=== PATIENT | female | born 1960 | race Caucasian/White ===

== ENCOUNTER → 2017-04-12 | Outpatient (CLI) | payer MEDICARE | LOC: COL.RAD 09:28 | DX: K50.90 Crohn's disease, unspecified, without complications (principal); K52.9 Noninfective gastroenteritis and colitis, unspecified; K21.9 Gastro-esophageal reflux disease without esophagitis ==

== ENCOUNTER 2019-08-14 17:43 | Emergency (ER) | payer MEDICARE ==
[~2019-08-14] VITALS: Ht 162.6 cm; Wt 68.2 kg
[2019-08-14] MEDS ORDERED: AMBIEN 10MG10 MG PO (18:38)
[2019-08-14] MEDS ORDERED: HUMIRA40 MG/0.8 SQ (18:38)
[2019-08-14] MEDS ORDERED: PRILOSEC 20MG20 MG PO (23:59)
[2019-08-15 00:30] VITALS: BP 151/82; PULSE 76; TEMP 98.8
== END 2019-08-15 00:30 | disposition home or self-care (01) ==
LOC: COL.ER 17:43
DX: T18.128A Food in esophagus causing other injury, initial encounter (principal); K50.90 Crohn's disease, unspecified, without complications; Z90.710 Acquired absence of both cervix and uterus; Z98.890 Other specified postprocedural states
CPT/HCPCS: C1726; J0330; J2060; J2250; J2704; J7030

== ENCOUNTER 2020-12-03 08:08 | Outpatient (CLI) | payer OTHER, MEDICARE ==
[2020-12-03] VITALS (17 sets, daily range): BP systolic 121–164; BP diastolic 50–79; PULSE 66–84
[~2020-12-03] VITALS: Ht 162.6 cm; Wt 85.7 kg
[~2020-12-03 08:08] MED LIST: AMBIEN 10MG10 MG PO; FLEXERIL 1010 MG/TAB PO; HUMIRA40 MG/0.8 SQ; PRILOSEC 20MG20 MG PO; SUBOXONE 8 MG-21 TAB SL
--- NOTE | 2020-12-03 09:55 | NUR ---
pt sitting on side of bed. Waiting for Dr Longoria to give pts position on the table.
--- NOTE | 2020-12-03 10:05 | NUR ---
Dr Longoria into room and looking at images. Pt to be positioned in prone position. Pt given pain meds and versed prior to laying down due to sternal fracture.
--- NOTE | 2020-12-03 10:22 | NUR ---
Specimens obtained by Dr Longoria and placed in formalin. Specimen labeled.
--- NOTE | 2020-12-03 13:02 | NUR ---
DC instructions reviewed with pt, she expresses understanding. IV DC'd with catheter intact, bleeding controlled. Bandaid remains clean, dry and intact. C/o continued sternal pain at area of recent fracture, but no other complaint. Moderate sedation restrictions reviewed with pt. She is assited out to 's car by wheelchair.
== END 2020-12-03 13:21 | disposition home or self-care (01) ==
LOC: COL.RAD 08:08
DX: R91.8 Other nonspecific abnormal finding of lung field (principal); N28.1 Cyst of kidney, acquired; S22.20XA Unspecified fracture of sternum, initial encounter for closed fracture
CPT/HCPCS: J2250; J3010; Q9967

== ENCOUNTER 2024-03-28 09:43 | Day surgery (SDC) | payer MEDICARE, OTHER ==
[~2024-03-28] VITALS: Ht 162.6 cm; Wt 73.2 kg
[~2024-03-28 09:43] MED LIST changes: +LR 1,000 ML IV SCH; +Ondansetron 4 MG/2 ML VIAL IV PRN
[2024-03-28 10:40] VITALS: BP 147/64; PULSE 60; TEMP 97.4
[2024-03-28] MEDS ORDERED: PRADAXA75 MG PO (10:44)
[2024-03-28] MEDS ORDERED: TOPROL XL 50MG50 MG PO (10:44)
[2024-03-28] MEDS ORDERED: K-DUR20 MEQ PO (10:45)
[2024-03-28] MEDS ORDERED: PRINZIDE 25 MG-1 TAB PO (10:46)
[2024-03-28] MEDS ORDERED: HUMIRA40 MG/0.3 SQ (10:49)
[2024-03-28] MEDS ORDERED: Lidocaine PF 2% (20 MG/ML) 5 ML VIAL ONE (11:17)
[2024-03-28] MEDS ORDERED: fentaNYL 50 MCG/ML 2 ML VIAL ONE (11:17)
[2024-03-28 12:10] VITALS: BP 130/62; PULSE 57
[2024-03-28 12:25] VITALS: BP 123/60; PULSE 60
--- NOTE | 2024-03-28 12:27 | NUR ---
1210 PATIENT RETURNS TO [facility] VIA CART. PT AWAKE AND ALERT. RESPIRATIONS UNLABORED. AMBULATED TO RECLINER CHAIR WITH 2:1 SBA. PT DENIES NAUSEA OR ABDOMINAL PAIN. HOOKED UP TO MONITOR AND VS OBTAINED. CALL LIGHT AT SIDE AND PRESENT. 1215 PATIENT TOLERATING APPLE JUICE AND BLUEBERRY MUFFIN WITHOUT NAUSEA OR DIFFICULTY SWALLOWING (EGD ONLY). 1225 IN ROOM SPEAKING WITH PATIENT. 1235 D/C INSTRUCTIONS REVIEWED WITH PATIENT. PT VERBALIZED UNDERSTANDING AND A COPY OF INSTRUCTIONS PROVIDED IN D/C FOLDER. 1245 PATIENT DRESSES SELF. 1255 PATIENT DISCHARGED FROM UNIT VIA W/C TO A PERSONAL VEHICLE. PT LEFT HOSPITAL IN STABLE CONDITION.
[2024-03-28 12:35] VITALS: BP 109/55; PULSE 60
== END 2024-03-28 12:43 | disposition home or self-care (01) ==
LOC: SDCO 09:43
DX: K31.5 Obstruction of duodenum (principal); K21.9 Gastro-esophageal reflux disease without esophagitis; K26.7 Chronic duodenal ulcer without hemorrhage or perforation; K50.80 Crohn's disease of both small and large intestine without complications; K52.89 Other specified noninfective gastroenteritis and colitis; I10 Essential (primary) hypertension; Z93.3 Colostomy status; Z90.49 Acquired absence of other specified parts of digestive tract; Z79.899 Other long term (current) drug therapy
CPT/HCPCS: J2704; J3010; J7120